=== PATIENT | male | born 1995 | race Caucasian/White ===

== ENCOUNTER 2020-02-21 05:54 | Emergency (ER) | payer BC, OTHER ==
--- NOTE | 2020-02-21 07:09 | ED ---
Psych HPI - General Source: patient Mode of arrival: ambulatory - History of Present Illness MD Complaint: suicidal ideation, feels depressed Onset/Timin -: days(s) Associated Psychiatric Symptoms: depression Quality: constant, getting worse Improves With: none Worsens With: none Associated Symptoms: denies other symptoms <ZoltanHoward - Last Filed: 02/21/20 07:10> <Juan Rodriguez - Last Filed: 02/23/20 07:22> - General Chief Complaint: Psychiatric Symptoms Stated Complaint: Mental health Time Seen by Provider: 02/21/20 06:03 - History of Present Illness Initial Comments: this patient is 24-year-old man who presents to be evaluated for worsening depression. He states he has had some underlying depression going on for about 2 years, but currently not treated. He statesthings have reached peak flow 4-5 days ago. (Howard Charlton) - Related Data Home Medications Medication Instructions Recorded Confirmed No Known Home Medications 02/21/20 02/21/20 Allergies Allergy/AdvReac Type Severity Reaction Status Date / Time No Known Allergies Allergy Verified 02/21/20 08:16 Review of Systems ROS Other: All systems not noted in ROS Statement are negative. Constitutional: Denies: fever, chills Respiratory: Denies: cough, dyspnea Cardiovascular: Denies: chest pain, palpitations Gastrointestinal: Denies: abdominal pain, nausea, vomiting, diarrhea Genitourinary: Denies: dysuria, hematuria Musculoskeletal: Denies: back pain Skin: Denies: rash Neurological: Denies: headache, weakness, numbness Psychiatric: Reports: depression, suicidal thoughts. Denies: auditory hallucinations, visual hallucinations, homicidal thoughts <ZoltanHoward - Last Filed: 02/21/20 07:10> ROS Other: All systems not noted in ROS Statement are negative. <Juan Rodriguez - Last Filed: 02/23/20 07:22> ROS Statement: Those systems with pertinent positive or pertinent negative responses have been documented in the HPI. Past Medical History Past Medical History: No Reported History History of Any Multi-Drug Resistant Organisms: None Reported Past Surgical History: No Surgical Hx Reported Past Psychological History: No Psychological Hx Reported Smoking Status: Current every day smoker Past Alcohol Use History: Rare Past Drug Use History: Marijuana <ZoltanHoward - Last Filed: 02/21/20 07:10> General Exam Limitations: no limitations General appearance: alert, in no apparent distress Head exam: Present: atraumatic, normocephalic Eye exam: Present: normal appearance. Absent: scleral icterus, conjunctival injection ENT exam: Present: normal oropharynx Neck exam: Present: normal inspection Respiratory exam: Present: normal lung sounds bilaterally. Absent: respiratory distress, wheezes, rales, rhonchi, stridor Cardiovascular Exam: Present: regular rate, normal rhythm, normal heart sounds. Absent: systolic murmur, diastolic murmur, rubs, gallop GI/Abdominal exam: Present: soft. Absent: distended, tenderness, guarding, rebound, rigid, mass Extremities exam: Present: normal inspection, normal capillary refill. Absent: pedal edema, calf tenderness Back exam: Present: normal inspection. Absent: CVA tenderness (R), CVA tenderness (L) Neurological exam: Present: alert Psychiatric exam: Present: depressed, suicidal ideation. Absent: anxious, flat affect, manic, homicidal ideation Skin exam: Present: warm, dry, intact, normal color <Howard Charlton - Last Filed: 02/21/20 07:10> Course Vital Signs 02/21/20 02/21/20 02/21/20 06:05 08:26 09:00 Temperature 98.7 F Pulse Rate 86 Respiratory 17 18 18 Rate Blood Pressure 146/93 O2 Sat by Pulse 99 Oximetry 02/21/20 02/21/20 10:00 10:09 Temperature 98.3 F Pulse Rate 72 Respiratory 18 18 Rate Blood Pressure 133/77 O2 Sat by Pulse 99 Oximetry Medical Decision Making <Juan Rodriguez - Last Filed: 02/23/20 07:22> - Medical Decision Making EPS evaluated the patient and determined that he was safe to go home and at that point time the patient agreed and was given a safety plan which she agreed to. (Juan Rodriguez) - Lab Data Lab Results 02/21/20 Range/Units 06:52 Urine Opiates Screen Not Detected (NotDetected) Ur Oxycodone Screen Not Detected (NotDetected) Urine Methadone Screen Not Detected (NotDetected) Ur Propoxyphene Screen Not Detected (NotDetected) Ur Barbiturates Screen Not Detected (NotDetected) U Tricyclic Antidepress Not Detected (NotDetected) Ur Phencyclidine Scrn Not Detected (NotDetected) Ur Amphetamines Screen Not Detected (NotDetected) U Methamphetamines Scrn Not Detected (NotDetected) U Benzodiazepines Scrn Not Detected (NotDetected) Urine Cocaine Screen Not Detected (NotDetected) U Marijuana (THC) Screen Detected H (NotDetected) Disposition <Howard Charlton - Last Filed: 02/21/20 07:10> Time of Disposition: 09:34 <Juan Rodriguez - Last Filed: 02/23/20 07:22> Clinical Impression: Depression Disposition: HOME SELF-CARE Condition: Good Instructions (If sedation given, give patient instructions): Depression (ED) Referrals: None,Stated [Primary Care Provider] - 1-2 days
[2020-02-21 07:49] LABS: Amphetamine Screen,Urine Not Detected (NotDetected); Barbiturate Screen,Urine Not Detected (NotDetected); Benzodiazepines Screen,Urine Not Detected (NotDetected); Cocaine Screen,Urine Not Detected (NotDetected); Methadone Screen, Urine Not Detected (NotDetected); Opiate Screen,Urine Not Detected (NotDetected); Oxycodone Screen, Urine Not Detected (NotDetected); Phencyclidine Screen,Urine Not Detected (NotDetected); Tricyclic Antidepressant,Urine Not Detected (NotDetected); Urn Cannabinoid Scrn Detected (NotDetected)
[2020-02-21 08:27] VITALS: RESP 18
[2020-02-21 10:30] VITALS: BP 133/77; PULSE 72; TEMP 98.3
== END 2020-02-21 10:12 | disposition home or self-care (01) ==
LOC: EC 05:54
DX: F32.9 Major depressive disorder, single episode, unspecified (principal); F17.200 Nicotine dependence, unspecified, uncomplicated
CPT/HCPCS: 80306; 82075; 99284

== ENCOUNTER 2020-05-31 13:24 | Emergency (ER) | payer BC ==
[2020-05-31 13:34] VITALS: RESP 18; TEMP 98.7
--- NOTE | 2020-05-31 13:52 | ED ---
General Adult HPI - General Chief complaint: Recheck/Abnormal Lab/Rx Stated complaint: elevated BP/heart rate Source: patient Mode of arrival: ambulatory Limitations: no limitations - History of Present Illness Initial comments: Rj is a previously healthy 24-year-old male who presents to the emergency department today for evaluation of hypertension. Patient reports he started checking his blood pressure last week because he was having some chest pain and noted that his blood pressures been elevated. Patient does state he is under a lot of psychological stress right now due to breakup with his fiance. Patient admits he is been binge drinking approximately 1/5 of vodka daily for the past 7 days. Patient states that due to his persistent hypertension and a blood p ressure of greater than 180 systolic at home he was told to come to the hospital for evaluation. Patient denies any fevers chills nausea or vomiting. Reports that dull chest pain is been present all week no shortness of breath no cough no cold symptoms. - Related Data Home Medications Medication Instructions Recorded Confirmed No Known Home Medications 02/21/20 05/31/20 Allergies Allergy/AdvReac Type Severity Reaction Status Date / Time No Known Allergies Allergy Verified 05/31/20 15:29 Review of Systems ROS Statement: Those systems with pertinent positive or pertinent negative responses have been documented in the HPI. ROS Other: All systems not noted in ROS Statement are negative. Past Medical History Past Medical History: No Reported History History of Any Multi-Drug Resistant Organisms: None Reported Past Surgical History: No Surgical Hx Reported Past Psychological History: No Psychological Hx Reported Smoking Status: Current every day smoker Past Alcohol Use History: Daily Past Drug Use History: Marijuana General Exam - General Exam Comments Initial Comments: Physical Exam GENERAL: Patient is well-developed and well-nourished. Patient is nontoxic and well- hydrated and is in no distress. HENT: Normocephalic, Atraumatic. EYES: PERRL, EOMI PULMONARY: Unlabored respirations. No audible rales rhonchi or wheezing was noted. CARDIOVASCULAR: There is a regular rate and rhythm without any murmurs gallops or rubs. ABDOMEN: Soft and nontender with normal bowel sounds. SKIN: Skin is clear with no lesions or rashes and otherwise unremarkable. : Deferred NEUROLOGIC: Patient is alert and oriented x3. Moving all extremities spontaneously MUSCULOSKELETAL: Normal extremities with adequate strength and full range of motion. No lower extremity swelling or edema. No calf tenderness. PSYCHIATRIC: Normal psychiatric evaluation. Limitations: no limitations Course Vital Signs 05/31/20 05/31/20 13:32 15:42 Temperature 98.7 F Pulse Rate 111 H 80 Respiratory 18 18 Rate Blood Pressure 152/93 135/81 O2 Sat by Pulse 99 100 Oximetry EKG Findings - EKG Comments: EKG Findings:: KG was obtained due to chest pressure and tachycardia KG was obtained at 1430 rate is 98 rhythm sinus rightward axis normal intervals. No acute ST elevations or depressions. Medical Decision Making - Medical Decision Making Patient seen and evaluated EKG, CXR and labs unremarkable Patient's heart rate and blood pressure improved after IV fluids Patient advised to decreased alcohol intake and follow up with primary care provider - Lab Data Result diagrams: 05/31/20 14:37 05/31/20 14:37 Lab Results 05/31/20 05/31/20 05/31/20 Range/Units 14:37 14:37 14:37 WBC 7.9 (3.8-10.6) k/uL RBC 4.91 (4.30-5.90) m/uL Hgb 15.7 (13.0-17.5) gm/dL Hct 46.0 (39.0-53.0) % MCV 93.7 (80.0-100.0) fL MCH 31.9 (25.0-35.0) pg MCHC 34.1 (31.0-37.0) g/dL RDW 12.4 (11.5-15.5) % Plt Count 263 (150-450) k/uL MPV 7.3 Neutrophils % 71 % Lymphocytes % 19 % Monocytes % 6 % Eosinophils % 2 % Basophils % 1 % Neutrophils # 5.6 (1.3-7.7) k/uL Lymphocytes # 1.5 (1.0-4.8) k/uL Monocytes # 0.5 (0-1.0) k/uL Eosinophils # 0.1 (0-0.7) k/uL Basophils # 0.0 (0-0.2) k/uL PT 11.3 (9.0-12.0) sec INR 1.1 (<1.2) APTT 23.3 (22.0-30.0) sec Sodium 141 (137-145) mmol/L Potassium 4.2 (3.5-5.1) mmol/L Chloride 106 (98-107) mmol/L Carbon Dioxide 27 (22-30) mmol/L Anion Gap 8 mmol/L BUN 10 (9-20) mg/dL Creatinine 0.82 (0.66-1.25) mg/dL Est GFR (CKD-EPI)AfAm >90 (>60 ml/min/1.73 sqM) Est GFR (CKD-EPI)NonAf >90 (>60 ml/min/1.73 sqM) Glucose 103 H (74-99) mg/dL Calcium 9.8 (8.4-10.2) mg/dL Magnesium 2.0 (1.6-2.3) mg/dL Total Bilirubin 0.5 (0.2-1.3) mg/dL AST 24 (17-59) U/L ALT 19 (4-49) U/L Alkaline Phosphatase 60 (38-126) U/L Troponin I (0.000-0.034) ng/mL Total Protein 7.5 (6.3-8.2) g/dL Albumin 4.7 (3.5-5.0) g/dL Lipase 82 (23-300) U/L 05/31/20 Range/Units 14:37 WBC (3.8-10.6) k/uL RBC (4.30-5.90) m/uL Hgb (13.0-17.5) gm/dL Hct (39.0-53.0) % MCV (80.0-100.0) fL MCH (25.0-35.0) pg MCHC (31.0-37.0) g/dL RDW (11.5-15.5) % Plt Count (150-450) k/uL MPV Neutrophils % % Lymphocytes % % Monocytes % % Eosinophils % % Basophils % % Neutrophils # (1.3-7.7) k/uL Lymphocytes # (1.0-4.8) k/uL Monocytes # (0-1.0) k/uL Eosinophils # (0-0.7) k/uL Basophils # (0-0.2) k/uL PT (9.0-12.0) sec INR (<1.2) APTT (22.0-30.0) sec Sodium (137-145) mmol/L Potassium (3.5-5.1) mmol/L Chloride (98-107) mmol/L Carbon Dioxide (22-30) mmol/L Anion Gap mmol/L BUN (9-20) mg/dL Creatinine (0.66-1.25) mg/dL Est GFR (CKD-EPI)AfAm (>60 ml/min/1.73 sqM) Est GFR (CKD-EPI)NonAf (>60 ml/min/1.73 sqM) Glucose (74-99) mg/dL Calcium (8.4-10.2) mg/dL Magnesium (1.6-2.3) mg/dL Total Bilirubin (0.2-1.3) mg/dL AST (17-59) U/L ALT (4-49) U/L Alkaline Phosphatase (38-126) U/L Troponin I <0.012 (0.000-0.034) ng/mL Total Protein (6.3-8.2) g/dL Albumin (3.5-5.0) g/dL Lipase (23-300) U/L Disposition Clinical Impression: Hypertension Disposition: HOME SELF-CARE Condition: Stable Instructions (If sedation given, give patient instructions): Hypertension (ED) Additional Instructions: Decrease alcohol consumption as this is likely contributing to your high heart rate and chest discomfort Is patient prescribed a controlled substance at d/c from ED?: No Referrals: None,Stated [Primary Care Provider] - 1-2 days
[2020-05-31] MEDS ORDERED: SODIUM CHLORIDE 0.9% 2,000 ML IV STA (14:35)
[2020-05-31 14:48] LABS: Basophils % (A) 1 %; Eosinophils # (A) 0.1 k/uL (0-0.7); Eosinophils % (A) 2 %; HGB 15.7 gm/dL (13.0-17.5); Lymphocytes # (A) 1.5 k/uL (1.0-4.8); Lymphocytes % (A) 19 %; MCH 31.9 pg (25.0-35.0); MCHC 34.1 g/dL (31.0-37.0); MCV 93.7 fL (80.0-100.0); Mean Platelet Volume 7.3; Monocytes # (A) 0.5 k/uL (0-1.0); Monocytes % (A) 6 %; Neutrophils # (A) 5.6 k/uL (1.3-7.7); Neutrophils % (A) 71 %; Platelet Count 263 k/uL (150-450); RBC 4.91 m/uL (4.30-5.90); RDW 12.4 % (11.5-15.5); WBC 7.9 k/uL (3.8-10.6)
[2020-05-31 14:56] LABS: ALT 19 U/L (4-49); AST 24 U/L (17-59); African American GFR (CKD) >90 (>60 ml/min/1.73 sqM); Albumin 4.7 g/dL (3.5-5.0); Alkaline Phosphatase 60 U/L (38-126); Anion Gap 8 mmol/L; Blood Urea Nitrogen 10 mg/dL (9-20); Calcium 9.8 mg/dL (8.4-10.2); Carbon Dioxide 27 mmol/L (22-30); Chloride 106 mmol/L (98-107); Glucose 103 mg/dL (74-99); INR 1.1 (<1.2); Lipase 82 U/L (23-300); Non-African American GFR(CKD) >90 (>60 ml/min/1.73 sqM); Partial Thromboplastin Time 23.3 sec (22.0-30.0); Potassium 4.2 mmol/L (3.5-5.1); Prothrombin Time 11.3 sec (9.0-12.0); Sodium 141 mmol/L (137-145); Total Bilirubin 0.5 mg/dL (0.2-1.3); Total Protein 7.5 g/dL (6.3-8.2)
--- NOTE | 2020-05-31 15:03 | XR ---
EXAMINATION TYPE: XR chest 2V DATE OF EXAM: 05/31/2020 COMPARISON: 07/17/2000 HISTORY: High blood pressure. Tachycardia. TECHNIQUE: 2 views FINDINGS: Heart and mediastinum are normal. Lungs are clear. Diaphragm is normal. Bony thorax appears normal. IMPRESSION: Normal chest. No adverse change.
[2020-05-31 15:43] VITALS: BP 135/81; PULSE 80
== END 2020-05-31 16:11 | disposition home or self-care (01) ==
LOC: EC 13:24
DX: I10 Essential (primary) hypertension (principal); F17.200 Nicotine dependence, unspecified, uncomplicated
CPT/HCPCS: 36415; 71046; 80053; 83690; 83735; 84484; 85025; 85610; 85730; 93005; 96360; 99284